=== PATIENT | male | born 1985 | race Caucasian/White ===

== ENCOUNTER 2024-10-23 09:03 | Emergency (ER) | payer OTHER ==
[2024-10-23 09:22] LABS: #Basophils 0.06 10x3/uL (0.0-0.2); %Basophils 0.9 % (0.0-1.0); %Eosinophils 2.4 % (0.0-10.0); %Lymphocytes 21.1 % (21.0-51.0); %Monocytes 5.8 % (0.0-10.0); %Neutrophils 65.2 % (42.0-75.0); Hematocrit 43.2 % (42.0-52.0); Mean Corpuscular HGB CONC 34.7 g/dL (32.0-36.0); Mean Corpuscular Hemoglobin 29.2 pg (27.0-31.0); Mean Platelet Volume 9.7 fL (7.4-10.4); Platelet Count 221 10x3/uL (130-400); RBC Distribution Width 12.6 % (11.5-14.5); Red Blood Cell (RBC) Count 5.14 mill/uL (4.70-6.10)
[2024-10-23 09:39] LABS: ALT (SGPT) 73 U/L (8-55); AST (SGOT) 34 U/L (5-34); Albumin 4.6 g/dL (3.5-5.0); Alkaline Phosphatase 69 U/L (40-110); Anion Gap 13 mmol/L (10-20); BUN (Urea Nitrogen) 16 mg/dL (8.9-20.6); Bilirubin, Total 0.6 mg/dL (0.2-1.2); Calc. Creatinine Clearance 0 mL/min (70-130); Carbon Dioxide 23 mmol/L (22-29); Chloride 108 mmol/L (98-107); Estimated GFR 85; Globulin 3.4 g/dL (2.4-3.5); Glucose 126 mg/dL (70-105); Potassium 4.1 mmol/L (3.5-5.1); Sodium 140 mmol/L (136-145)
[2024-10-23] MEDS ORDERED: Ondansetron PF 4 MG/2 ML Vial ONE (09:40)
[2024-10-23] MEDS ORDERED: Morphine 4 MG/ML VIAL ONE (09:40)
[2024-10-23] MEDS ORDERED: Morphine 2 MG/ML VIAL ONE (09:45)
[2024-10-23] MEDS ORDERED: Iopamidol-370 76% 500 ML MDV (1 ML CHARGE) ONE (14:58)
== END 2024-10-23 13:55 | disposition home or self-care (01) ==
LOC: ERS 09:03
DX: S32.038A Other fracture of third lumbar vertebra, initial encounter for closed fracture (principal); S32.028A Other fracture of second lumbar vertebra, initial encounter for closed fracture; S32.018A Other fracture of first lumbar vertebra, initial encounter for closed fracture; Z55.6 Problems related to health literacy; V89.2XXA Person injured in unspecified motor-vehicle accident, traffic, initial encounter; Y93.89 Activity, other specified
CPT/HCPCS: 36415; 70450; 71045; 72100; 72125; 74177; 80053; 85025; 96374; 96375; G0390; J2272; J2405; Q9967

== ENCOUNTER 2024-11-07 11:45 | Outpatient (CLI) | payer OTHER | END 2024-11-07 11:46 | disposition home or self-care (01) | LOC: RAD 11:45 | PROVIDERS: ATTEND Neurological Surgery | DX: S32.020D Wedge compression fracture of second lumbar vertebra, subsequent encounter for fracture with routine healing (principal); M51.379 Other intervertebral disc degeneration, lumbosacral region without mention of lumbar back pain or lower extremity pain | CPT/HCPCS: 72100 ==

== ENCOUNTER 2024-12-20 09:14 | Outpatient (CLI) | payer OTHER | END 2024-12-20 09:15 | disposition home or self-care (01) | LOC: RAD 09:14 | PROVIDERS: ATTEND Neurological Surgery | DX: S32.029D Unspecified fracture of second lumbar vertebra, subsequent encounter for fracture with routine healing (principal); M51.379 Other intervertebral disc degeneration, lumbosacral region without mention of lumbar back pain or lower extremity pain | CPT/HCPCS: 72100 ==